=== PATIENT | female | born 1995 | race Two or more races ===

== ENCOUNTER 2017-11-19 16:50 | Emergency (ER) | payer SELFPAY ==
[2017-11-19 17:30] VITALS: BMI 31.2
[2017-11-19 17:46] LABS: BILIRUBIN,URINE NEGATIVE (NEGATIVE); BLOOD/HEMOGLOBIN,URINE NEGATIVE (NEGATIVE); GLUCOSE, URINE NEGATIVE (NEGATIVE); KETONES,URINE NEGATIVE (NEGATIVE); LEUKOCYTE ESTERASE ,URINE 2+ (NEGATIVE); NITRITES,URINE NEGATIVE (NEGATIVE); PROTEIN,URINE 1+ (NEGATIVE); UROBILINOGEN,URINE NORMAL (NORMAL)
[2017-11-19 17:53] LABS: APPEARANCE,URINE HAZY (CLEAR); BACTERIA,URINE TRACE /HPF (NEGATIVE); COLOR,URINE YELLOW (YELLOW); RBC,URINE 0-5 /HPF (NEGATIVE); SQUAMOUS EPITHELIAL CELL,UR RARE /HPF (NEGATIVE)
[2017-11-19 17:57] LABS: AMNISURE ROM TEST NO MEMBRANES RUPTURE (NO RUPTURE)
[2017-11-19 19:09] VITALS: BP 99/63
== END 2017-11-19 19:00 | disposition home or self-care (01) ==
LOC: EDBD → ER 17:24
DX: R10.84 Generalized abdominal pain (principal); Z3A.00 Weeks of gestation of pregnancy not specified
CPT/HCPCS: 81001; 84112; 99284

== ENCOUNTER 2017-11-20 10:46 | Inpatient (IN) | payer SELFPAY ==
[2017-11-20] MEDS ORDERED: D5 1/2 NS 1000 ML 1,000 ML IV ONE ×3 (10:53→18:26)
[2017-11-20] MEDS ORDERED: D5 1/2 NS 1000 ML 1,000 ML IV SCH (11:06)
[2017-11-20 11:08] LABS: AMNISURE ROM TEST THERE IS A RUPTURE (NO RUPTURE)
[2017-11-20] MEDS ORDERED: NEOSTIGMINE INJ ONE (11:11)
[2017-11-20 11:18] LABS: BASOPHILS # (AUTO) 0.1 X10^3/uL (0.0-0.1); BASOPHILS % (AUTO) 0.7 % (0.2-1.0); EOSINOPHILS % (AUTO) 0.4 % (0.9-2.9); HEMATOCRIT 34.6 % (36.0-47.0); HEMOGLOBIN 11.6 g/dL (12.0-16.0); LYMPHOCYTES # (AUTO) 2.2 X10^3/uL (1.3-2.9); LYMPHOCYTES % (AUTO) 28.2 % (21.0-51.0); MEAN CORPUSCULAR HEMOGLOBIN 27.7 pg (27.0-34.0); MEAN CORPUSCULAR HGB CONC 33.6 g/dL (33.0-35.0); MEAN CORPUSCULAR VOLUME 82.3 fL (80.0-100.0); MEAN PLATELET VOLUME 11.4 fL (7.4-11.0); MONOCYTES # (AUTO) 0.4 x10^3/uL (0.3-0.8); MONOCYTES % (AUTO) 5.5 % (0.0-13.0); NEUTROPHILS # (AUTO) 5.2 x10^3/uL (2.2-4.8); NEUTROPHILS % (AUTO) 65.2 % (42.0-75.0); PLATELET COUNT 199 X10^3/uL (150.0-450.0); RED CELL DISTRIBUTION WIDTH 14.2 % (11.6-16.5); WHITE BLOOD COUNT 7.9 X10^3/uL (3.6-10.0)
[2017-11-20] MEDS ORDERED: ANCEF 1 GM IV PREMIX* 1 GM/50 ML BAG IV ONE (11:34)
[2017-11-20] MEDS ORDERED: NS 1000 ML 1,000 ML ONE (11:34)
[2017-11-20] MEDS ORDERED: FENTANYL INJ 250 mcg ONE (11:42)
[2017-11-20 11:56] LABS: ALANINE AMINOTRANSFERASE 13 Units/L (12-78); ALBUMIN 2.7 g/dL (3.4-5.0); ALKALINE PHOSPHATASE 259 Units/L (46-116); ASPARTATE AMINO TRANSFERASE 18 Units/L (15-37); BLOOD UREA NITROGEN 11 mg/dL (7-18); CALCIUM 8.8 mg/dL (8.5-10.1); CARBON DIOXIDE 16.5 mmol/L (21-32); CHLORIDE 101 mmol/L (98-107); COR CA(FOR HYPOALB) 9.8 mg/dL (8.5-10.1); CREATININE 0.72 mg/dL (0.55-1.02); SODIUM 133 mmol/L (136-145); TOTAL PROTEIN 7.7 g/dL (6.4-8.2); eGFR BLACK RACES > 60 (>60); eGFR NON BLACK RACES > 60 (>60)
[2017-11-20] MEDS ORDERED: D5 1/2 NS 1L W PITOCIN 20 UNITS/L 20 UNITS/1,000 ML BAG IV ONE (11:59)
[2017-11-20 12:11] VITALS: BMI 31.2
[2017-11-20] MEDS ORDERED: NS IRRIGATION 1000 ML 1,000 ML IR ONE (12:30)
[2017-11-20 12:39] LABS: BILIRUBIN,URINE NEGATIVE (NEGATIVE); BLOOD/HEMOGLOBIN,URINE 5+ (NEGATIVE); GLUCOSE, URINE 4+ (NEGATIVE); KETONES,URINE NEGATIVE (NEGATIVE); LEUKOCYTE ESTERASE ,URINE 1+ (NEGATIVE); NITRITES,URINE NEGATIVE (NEGATIVE); PROTEIN,URINE 3+ (NEGATIVE); UROBILINOGEN,URINE NORMAL (NORMAL)
[2017-11-20 12:48] LABS: APPEARANCE,URINE HAZY (CLEAR); BACTERIA,URINE 1+ /HPF (NEGATIVE); COLOR,URINE YELLOW (YELLOW); RBC,URINE 20-25 /HPF (NEGATIVE); SQUAMOUS EPITHELIAL CELL,UR RARE /HPF (NEGATIVE)
[2017-11-20] MEDS ORDERED: REGLAN INJ 10 MG VIAL IVP PRN (12:58)
[2017-11-20] MEDS ORDERED: ZOFRAN INJ 4 MG VIAL IVP PRN ×2 (12:58→13:31)
[2017-11-20] MEDS ORDERED: DILAUDID INJ IVP PRN (12:58)
[2017-11-20] MEDS ORDERED: BENADRYL INJ 50 MG VIAL IVP PRN (12:58)
[2017-11-20] MEDS ORDERED: PHENERGAN INJ 25 MG IVP PRN (12:58)
[2017-11-20] MEDS ORDERED: ADACEL TDaP IM ONE (13:31)
[2017-11-20] MEDS ORDERED: MORPHINE SULFATE PCA 30 MG IVP PRN (13:31)
[2017-11-20] MEDS ORDERED: D5 1/2 NS 1000 ML 1,000 ML with PITOCIN 20 UNITS IV SCH ×2 (13:31)
[2017-11-20] MEDS ORDERED: MYLICON TAB 80 MG CHEW PO PRN (13:31)
[2017-11-20] MEDS ORDERED: BENADRYL CAP/TAB 25 MG PO PRN (13:31)
[2017-11-20] MEDS ORDERED: ROBINUL ONE (14:21)
[2017-11-20] MEDS ORDERED: NORCURON INJ 10 MG VIAL ONE (14:21)
[2017-11-20] MEDS ORDERED: QUELICIN (OR ANECTINE) ONE (14:21)
[2017-11-20] MEDS ORDERED: XYLOCAINE 2 % (PLAIN) ONE (14:21)
[2017-11-20] MEDS ORDERED: DIPRIVAN VIAL ONE (14:21)
[2017-11-20] MEDS ORDERED: ULTANE GAS IN ONE (14:21)
[2017-11-20] MEDS ORDERED: SUPRANE IN ONE (14:21)
[2017-11-20] MEDS ORDERED: ZOFRAN INJ 4 MG VIAL ONE (14:21)
[2017-11-20] MEDS ORDERED: VERSED ONE (14:21)
[2017-11-20] MEDS ORDERED: PITOCIN ONE (15:15)
[2017-11-20] MEDS: TORADOL 30 MG VIAL IVP PRN (15:24)
[2017-11-20] MEDS: PERCOCET TAB 5/325 MG PO PRN (18:17)
[2017-11-20] MEDS: ZANTAC PO SCH (20:42)
[2017-11-21] MEDS: PERCOCET TAB 5/325 MG PO PRN ×4 (01:18→16:45)
[2017-11-21 05:29] LABS: HEMATOCRIT 23.7 % (36.0-47.0); HEMOGLOBIN 8.1 g/dL (12.0-16.0)
[2017-11-21] MEDS ORDERED: DEXFERRUM or INFED 25 MG in NS 100 ML IV 100 ML IV NR (08:53)
[2017-11-21] MEDS: PRENATAL PLUS PO SCH (08:56)
[2017-11-21] MEDS: ZANTAC PO SCH ×2 (08:56→20:00)
[2017-11-21] MEDS ORDERED: PHARMACY CONSULT - DOSE _____ XX SCH (09:00)
[2017-11-21] MEDS ORDERED: DEXFERRUM or INFED 975 MG in NS 500 ML IV 500 ML IV ONE (11:00)
[2017-11-21] MEDS: TORADOL 30 MG VIAL IVP PRN (19:55)
[2017-11-22] MEDS: PRENATAL PLUS PO SCH (10:19)
[2017-11-22] MEDS: ZANTAC PO SCH ×2 (10:22→20:58)
[2017-11-22] MEDS: PERCOCET TAB 5/325 MG PO PRN (13:21)
[2017-11-23] MEDS: TORADOL 30 MG VIAL IVP PRN (00:45)
[2017-11-23] MEDS: ZANTAC PO SCH (09:09)
[2017-11-23] MEDS: PRENATAL PLUS PO SCH (09:09)
[2017-11-23 13:14] VITALS: BP 108/55
== END 2017-11-23 14:10 | disposition home or self-care (01) | DRG 766 ==
LOC: ER 10:46 → LD 11:17 → MED/SURG 13:33
PROVIDERS: ADMIT Specialist; ATTEND Obstetrics & Gynecology Obstetrics
PROC: 3E0234Z Introduction of Serum, Toxoid and Vaccine into Muscle, Percutaneous Approach (ICD-10-PCS; 2017-11-20)
PROC: 10D00Z1 Extraction of Products of Conception, Low, Open Approach (ICD-10-PCS; principal; 2017-11-20 11:45)
DX: O64.1XX0 Obstructed labor due to breech presentation, not applicable or unspecified (principal); Z37.0 Single live birth; Z3A.40 40 weeks gestation of pregnancy; O09.33 Supervision of pregnancy with insufficient antenatal care, third trimester; Z23 Encounter for immunization
CPT/HCPCS: 36415; 80053; 80307; 81001; 84112; 85014; 85018; 85025; 86592; 86850; 86900; 86901; 94640; 96365; 99284; A4216; A4222; S0197; G0434; J0330; J0690; J1750; J1885; J2001; J2250; J2405; J2590; J2710; J3010; J3490; J7042